=== PATIENT | female | born 1990 | race Caucasian/White ===

== ENCOUNTER 2021-09-16 14:36 | Emergency (ER) | payer MEDICAID ==
[~2021-09-16] VITALS: Ht 157.5 cm; Wt 59.1 kg
[2021-09-16 16:26] VITALS: BP 125/70
[2021-09-16] MEDS ORDERED: KETOROLAC TROMETHAMINE 10 MG TABLET PO ONE (16:30)
[2021-09-16] MEDS ORDERED: METHOCARBAMOL 500 MG TABLET PO ONE (16:30)
== END 2021-09-16 16:45 | disposition home or self-care (01) ==
LOC: EMS 14:42
DX: S46.811A Strain of other muscles, fascia and tendons at shoulder and upper arm level, right arm, initial encounter (principal); V43.52XA Car driver injured in collision with other type car in traffic accident, initial encounter; Y93.89 Activity, other specified; Y92.89 Other specified places as the place of occurrence of the external cause; Y99.8 Other external cause status
CPT/HCPCS: 99283

== ENCOUNTER 2021-11-12 20:22 | Emergency (ER) | payer MEDICAID | END 2021-11-12 22:28 | disposition left against medical advice (07) | LOC: EMS 20:22 | DX: M54.50 Low back pain, unspecified (principal); Z53.21 Procedure and treatment not carried out due to patient leaving prior to being seen by health care provider ==